=== PATIENT | female | born 1985 | race Caucasian/White ===

== ENCOUNTER 2021-06-07 17:51 | Emergency (ER) | payer SELFPAY ==
[~2021-06-07] VITALS: Ht 160 cm; Wt 54.4 kg
[2021-06-07 18:02] VITALS: BP 101/64
--- NOTE | 2021-06-07 18:10 | NUR ---
THE PATIENT BIB [facility] FOR FEELING WEAK, NEARLY FAINTED S/P 1ST DOSE COVID SHOT 45 MINS AGO. ALERT AND ORIENTED X4. DENIES PAIN. IN ROOM AIR AND DENIES SOB. RESPIRATION REGULAR AND UNLABORED. WILL CONTINUE TO MONITOR THE PATIENT.
--- NOTE | 2021-06-07 19:13 | NUR ---
Patient discharged to home in stable condition. Written and verbal after care instructions given. Patient verbalizes understanding of instruction.
== END 2021-06-07 19:13 | disposition home or self-care (01) ==
LOC: ER 17:56
DX: T88.1XXA Other complications following immunization, not elsewhere classified, initial encounter (principal); R55 Syncope and collapse
CPT/HCPCS: 82962-TC

== ENCOUNTER 2021-06-11 23:13 | Emergency (ER) | payer SELFPAY ==
[~2021-06-11] VITALS: Ht 160 cm; Wt 54.4 kg
[2021-06-12] MEDS ORDERED: ONDANSETRON HCL/PF 4 MG/2 ML VIAL ONE (00:49)
[2021-06-12] MEDS ORDERED: KETOROLAC TROMETHAMINE 15 MG/ML VIAL ONE (00:49)
[2021-06-12] MEDS ORDERED: ONDANSETRON HCL/PF 4 MG/2 ML VIAL IVP ONE (01:00)
[2021-06-12] MEDS ORDERED: IV NS 0.9% 1,000 ML BAG IV ONE ×2 (01:00→03:00)
[2021-06-12] MEDS ORDERED: KETOROLAC TROMETHAMINE INJ 30 MG/ML VIAL IV ONE (01:00)
[2021-06-12 01:11] LABS: BASOPHILS # (AUTO) 0.1 K/uL (0.0-0.2); BASOPHILS % (AUTO) 0.7 % (0.0-2.0); EOSINOPHILS % (AUTO) 0.6 % (0.0-6.0); HEMATOCRIT 45 % (33-45); HEMOGLOBIN 14.4 g/dL (11.5-14.8); LYMPHOCYTES # (AUTO) 1.5 K/uL (0.8-4.8); LYMPHOCYTES % (AUTO) 18.4 % (20.0-44.0); MEAN CORPUSCULAR HGB CONC 33 g/dl (31.0-36.0); MEAN CORPUSCULAR VOLUME 88 fL (82-100); MONOCYTES # (AUTO) 0.5 K/uL (0.1-1.30); MONOCYTES % (AUTO) 5.8 % (2.0-12.0); NEUTROPHILS # (AUTO) 6.1 K/uL (1.8-8.9); NEUTROPHILS % (AUTO) 74.5 % (43.0-81.0); PLATELET COUNT (AUTO) 365 K/uL (150-450); RED BLOOD CELL COUNT(AUTO) 5.04 MIL/uL (4.0-5.2); WHITE BLOOD COUNT (AUTO) 8.2 K/uL (4.3-11.0)
[2021-06-12 02:35] LABS: CALCIUM, SERUM 7.8 mg/dL (8.5-10.1); CREATININE 0.8 mg/dL (0.6-1.3); POTASSIUM 4.1 mmol/L (3.5-5.1)
[2021-06-12 03:53] VITALS: BP 107/68
== END 2021-06-12 03:53 | disposition home or self-care (01) ==
LOC: ER 23:54
DX: E86.0 Dehydration (principal); I95.1 Orthostatic hypotension; J32.9 Chronic sinusitis, unspecified; Z20.822 Contact with and (suspected) exposure to COVID-19
CPT/HCPCS: 36415; 71045; 80048; 83880; 84443; 84484; 84703; 85025; 85378; 87426; 93005; 96360; 96361; 99285; C9803; J7030 ×2; J1885; J2405